=== PATIENT | female | born 1970 | race Caucasian/White ===

== ENCOUNTER 2021-01-10 16:09 | Outpatient (CLI) | payer OTHER, SELFPAY | END 2021-01-10 16:10 | disposition home or self-care (01) | LOC: ANHCOVIDVC 16:09 | PROVIDERS: PCP Physician Assistant; Visit Provider Physician Assistant | DX: Z23 Encounter for immunization (principal) | CPT/HCPCS: 0001A; 91300 ==

== ENCOUNTER 2021-01-31 16:17 | Outpatient (CLI) | payer OTHER, SELFPAY | END 2021-01-31 16:18 | disposition home or self-care (01) | LOC: ANHCOVIDVC 16:17 | PROVIDERS: PCP Physician Assistant | DX: Z23 Encounter for immunization (principal) | CPT/HCPCS: 0002A; 91300 ==

== ENCOUNTER 2024-05-15 09:13 | Outpatient (CLI) | payer BC, SELFPAY ==
--- NOTE | ~2024-05-15 | XR_ITS ---
EXAMINATION: XR ribs LT 2V w CXR 2V DATE: 05/15/2024 09:32 INDICATION: Left lower rib pain. TECHNIQUE: Frontal and lateral views of the chest and 2 views on 3 radiographs of the left ribs were obtained. COMPARISON: CT abdomen and pelvis 06/12/2019 FINDINGS: CHEST TWO VIEWS: There is no pneumonia, pleural effusion, or pneumothorax. The heart size is normal. LEFT RIBS: There is no rib fracture. IMPRESSION: 1. No rib fracture. Reviewed, dictated and finalized at location A. IMPRESSION: 1. No rib fracture.
== END 2024-05-15 09:14 ==
PROVIDERS: PCP Physician Assistant; Visit Provider Physician Assistant
DX: R10.12 Left upper quadrant pain (principal); R07.81 Pleurodynia
CPT/HCPCS: 71046; 71100

== ENCOUNTER 2024-05-18 12:45 | Outpatient (CLI) | payer BC, SELFPAY ==
--- NOTE | ~2024-05-18 | US_ITS ---
EXAMINATION: US abdomen limited DATE: 05/18/2024 13:11 INDICATION: Left upper quadrant abdominal pain. TECHNIQUE: Multiple grayscale and Doppler ultrasound images of the abdomen were obtained. COMPARISON: CT abdomen and pelvis 06/12/2019 FINDINGS: The spleen is normal in size. Left kidney is normal. IMPRESSION: 1. No etiology for the patient's symptoms. Reviewed, dictated and finalized at location E.
== END 2024-05-18 12:46 ==
PROVIDERS: PCP Physician Assistant; Visit Provider Physician Assistant
DX: R10.12 Left upper quadrant pain (principal); R07.81 Pleurodynia
CPT/HCPCS: 76705

== ENCOUNTER 2024-06-11 06:36 | Outpatient (CLI) | payer BC, SELFPAY ==
--- NOTE | ~2024-06-11 | CT_ITS ---
Clinical Indication: Chest pain CT Scan of the Chest with Contrast: Technique: Contiguous sections were acquired throughout the chest after intravenous administration of 75 cc of Omnipaque 350. Dose reduction technique was used on this scan by utilizing automated exposu re control and iterative reconstruction technique. The dose-length product (DLP) was 158.25 mGy-cm. Findings: There is no evidence of any significant mediastinal, hilar or axillary lymphadenopathy. There is no f illing defect in the pulmonary arterial tree to suggest pulmonary embolus. There is no evidence of ao rtic dissection or aneurysm. There is no evidence of pleural or pericardial effusion. The lungs are clear. No pulmonary nodules or infiltrates are noted. Images through the upper abdomen reveal no abnormalities. Impression: No evidence of pulmonary embolus, aortic dissection, or aortic aneurysm. Clear lungs. Reviewed, dictated and finalized at [facility]. Impression: No evidence of pulmonary embolus, aortic dissection, or aortic aneurysm. Clear lungs.
== END 2024-06-11 06:37 | disposition home or self-care (01) ==
PROVIDERS: PCP Physician Assistant; Visit Provider Physician Assistant
DX: R07.81 Pleurodynia (principal)
CPT/HCPCS: 71260; Q9967

== ENCOUNTER 2024-07-07 07:35 | Outpatient (CLI) | payer BC, SELFPAY ==
--- NOTE | ~2024-07-07 | CT_ITS ---
CT of the Abdomen and Pelvis: Indication: Abdominal pain Technique: 2.5 mm axial scans were obtained through the abdomen and pelvis following intravenous adm inistration of 100 cc of Omnipaque 350. Dose reduction technique was used on this scan by utilizing a utomated exposure control and iterative reconstruction technique. The dose-length product (DLP) was 5 47.57 mGy-cm. Findings: Scans through the lung bases are unremarkable. The liver, spleen, pancreas, gallbladder, adrenals and kidneys are within normal limits. No evidence of aortic aneurysm. No lymphadenopathy. No bowel obstruction or bowel wall thickening. There is no evidence to suggest acute appendicitis. Images through the pelvis were performed. Urinary bladder unremarkable. Probable uterine fibroids. No other adnexal mass seen. No ascites. Impression: No acute abnormality. Uterine fibroids. Reviewed, dictated and finalized at [facility]. Impression: No acute abnormality. Uterine fibroids.
== END 2024-07-07 07:36 | disposition home or self-care (01) ==
PROVIDERS: PCP Physician Assistant; Visit Provider Physician Assistant
DX: D25.9 Leiomyoma of uterus, unspecified (principal)
CPT/HCPCS: 74177; Q9967